=== PATIENT | female | born 1970 | race Caucasian/White ===

== ENCOUNTER 2017-01-02 13:11 | Emergency (ER) | payer OTHER ==
[2017-01-02 15:57] VITALS: BP 154/102
--- NOTE | 2017-01-02 16:39 | UC ---
Lower Extremity/Ankle HPI - HPI Summary HPI Summary: Patient presents with left foot pain x 3 weeks which has been getting worse. Also, c/o chest pain intermittent for several weeks with cough. Cough is non- productive. Patient is a non-smoker, does not take ocp's, denies travel history or malignancy. Denies leg pain or calf pain. Otherwise healthy. - History of Current Complaint Chief Complaint: UCRespiratory Stated Complaint: CHEST/COUGH/ALLERGY COMPLAINTS, FOOT INJ Time Seen by Provider: 01/02/17 16:02 Hx Obtained From: Patient Hx Last Menstrual Period: t-23 ?: No Onset/Duration: Gradual Onset Severity Initially: Moderate Severity Currently: Moderate Pain Intensity: 8 Pain Scale Used: 0-10 Numeric Aggravating Factor(s): Standing, Ambulation Alleviating Factor(s): Rest Able to Bear Weight: Yes - Risk Factors Gout Risk Factors: Negative DVT Risk Factors: Negative Septic Arthritis Risk Factor: Negative - Allergies/Home Medications Allergies/Adverse Reactions: Allergies Allergy/AdvReac Type Severity Reaction Status Date / Time Codeine Allergy Intermediate Hives Verified 10/27/14 18:36 Home Medications: Home Medications Ibuprofen [Advil] 400 mg PO 01/02/17 [History] PMH/Surg Hx/FS Hx/Imm Hx Previously Healthy: Yes - Surgical History Surgical History: Yes Surgery Procedure, Year, and Place: c/s - Family History Known Family History: Positive: Cardiac Disease - Social History Occupation: Employed Full-time Lives: With Family Alcohol Use: Rare Substance Use Type: None Smoking Status (MU): Never Smoked Tobacco Review of Systems Constitutional: Negative Skin: Negative Respiratory: Negative Cardiovascular: Chest Pain - not reproducible, chest pain worse with cough, better with rest, pain moves from right to left and is intermittent, Other Motor: Decreased ROM, Other - pain in left foot Musculoskeletal: Negative Neurological: Negative Psychological: Negative All Other Systems Reviewed And Are Negative: Yes Physical Exam Triage Information Reviewed: Yes Appearance: Well-Appearing, No Pain Distress, Well-Nourished Vital Signs: Initial Vital Signs Temp 100.0 F 01/02/17 13:29 Pulse 68 01/02/17 13:29 Resp 18 01/02/17 13:29 BP 148/95 01/02/17 13:29 Pulse Ox 99 01/02/17 13:29 Vital Signs Reviewed: Yes Eye Exam: Normal Eyes: Positive: Conjunctiva Clear Neck exam: Normal Neck: Positive: Supple, Nontender, No Lymphadenopathy Respiratory Exam: Normal Respiratory: Positive: Chest non-tender, Lungs clear Cardiovascular Exam: Normal Cardiovascular: Positive: RRR Musculoskeletal: Positive: ROM Limited @ - left ankle and foot Psychological Exam: Normal Psychological: Positive: Normal Response To Family, Age Appropriate Behavior Skin Exam: Normal Lower Extremity Course/Dx - Course Course Of Treatment: Pain is not reproducible, chest pain worse with cough, better with rest, pain moves from right to left and is intermittent. Foot is with pain on standing and ambulationg, better with rest. Denies known injury of the foot. no swelling noted. discussed treatment options. Tamika tendinitis. Patient OK for discharge - Differential Dx/Diagnosis Differential Diagnosis/HQI/PQRI: Sprain, Strain, Tendonitis Provider Diagnoses: tendonitis Discharge - Discharge Plan Condition: Stable Disposition: HOME Patient Education Materials: Tendinitis (ED) Referrals: Julisa Islas NP [Primary Care Provider] - Additional Instructions: Follow up with PCP If symptoms persist, recommended repeat imaging. Ibuprofen 600mg three times daily for pain and inflammation If any chest pain becomes worse, immediately go to the emergency department
--- NOTE | 2017-01-02 16:56 | RAD ---
Indication: Chest pain. 2 views of the chest including dual energy PA views demonstrates no mediastinal shift. Heart is of normal size and configuration. No pleural fluid, pneumonia or pneumothorax is noted. IMPRESSION: No active cardiopulmonary disease is identified.
--- NOTE | 2017-01-02 16:59 | RAD ---
Indication: Foot pain. 3 views of left foot demonstrates no fracture. No other bone or joint abnormality is identified. IMPRESSION: No fracture of the left foot is noted.
== END 2017-01-02 17:09 | disposition home or self-care (01) ==
LOC: UCEAST 13:11
DX: M77.52 Other enthesopathy of left foot and ankle (principal); R07.9 Chest pain, unspecified; R05 Cough
CPT/HCPCS: 71020; 93005; 99212; G0463